=== PATIENT | female | born 1985 | race Caucasian/White ===

== ENCOUNTER 2025-03-27 23:00 | Emergency (ER) | payer SELFPAY ==
[2025-03-27 23:19] VITALS: BP 186/111; PULSE 101; RESP 18; TEMP 36.6; O2SAT 20; BMI 29.2
[2025-03-27 23:21] VITALS: BP 178/91; PULSE 88; RESP 18; TEMP 36.6; O2SAT 98
--- NOTE | 2025-03-27 23:32 | PC.NURSE ---
Pt left hand cleansed, wrapped. Dr Preciado notified.
--- NOTE | 2025-03-27 23:58 | XR_ITS ---
PROCEDURE INFORMATION: Exam: XR Left Hand Exam date and time: 03/28/2025 12:18 AM Age: 40 years old Clinical indication: Pain; Hand; Left; Additional info: Foosh, lac on palm, ? foreign body TECHNIQUE: Imaging protocol: Radiologic exam of the left hand. Views: 3 or more views. COMPARISON: No relevant prior studies available. FINDINGS: Bones/joints: Osseous alignment is normal. No acute fracture. No significant arthritic change. Soft tissues: Normal. IMPRESSION: Negative left hand
[2025-03-28] MEDS: LIDOCAINE 1% W/EPI 1:100,000 20ML VIAL 10 ML SQ (00:07)
[2025-03-28] MEDS: TET/DIPHTH/PERT-ADULT 0.5ML SYRINGE 0.5 ML IM (00:08)
[2025-03-28] MEDS: ACETAMINOPHEN 500MG TAB 1000 MG PO (00:14)
[2025-03-28] MEDS: IBUPROFEN 800 MG TABLET PO (00:14)
--- NOTE | 2025-03-28 03:00 | PC.NURSE ---
pt educated on care of wound, supplies sent with pt, educated to take entire course of abx,monitor for signs of infection. No questions at this time.
[2025-03-28 03:03] VITALS: BP 164/74; PULSE 77; RESP 16; TEMP 36.6; O2SAT 100
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
== END 2025-03-28 03:05 | disposition home or self-care (01) ==
LOC: ER 03-28 03:46
PROVIDERS: Emergency Provider Emergency Medicine; PCP Physician Assistant
DX: S61.412A Laceration without foreign body of left hand, initial encounter (principal); W01.0XXA Fall on same level from slipping, tripping and stumbling without subsequent striking against object, initial encounter
CPT/HCPCS: 12042; 73130; 90715; 99284; J2004